=== PATIENT | female | born 1990 | race Asian ===

== ENCOUNTER 2021-01-13 10:37 | Observation (INO) | payer BC, SELFPAY ==
[~2021-01-13] VITALS: Ht 6 cm; Wt 77.1 kg
== END 2021-01-13 14:30 | disposition home or self-care (01) ==
LOC: SPU 10:37
PROVIDERS: ADMIT Specialist; ATTEND Specialist
DX: O62.9 Abnormality of forces of labor, unspecified (principal); Z3A.38 38 weeks gestation of pregnancy
CPT/HCPCS: 76815; G0378; 59025; 81002